=== PATIENT | male | born 1965 | race Caucasian/White ===

== ENCOUNTER 2022-04-14 11:20 | Emergency (ER) | payer MEDICAID, SELFPAY ==
[2022-04-14 11:28] VITALS: BP 113/73; PULSE 69; RESP 18; TEMP 37.2; O2SAT 99
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
[2022-04-14] MEDS: Tetanus & Diphtheria Tox,ADULT 0.5 ML VIAL IM (12:33)
[2022-04-14 12:34] VITALS: BP 132/80; PULSE 72; RESP 18; TEMP 37; O2SAT 97
== END 2022-04-14 12:37 | disposition home or self-care (01) ==
PROVIDERS: Emergency Provider Emergency Medicine
DX: L55.1 Sunburn of second degree (principal); S91.001A Unspecified open wound, right ankle, initial encounter; Z23 Encounter for immunization; X58.XXXA Exposure to other specified factors, initial encounter; S91.002A Unspecified open wound, left ankle, initial encounter
CPT/HCPCS: 90471; 99283; 99284